=== PATIENT | male | born 1980 | race Caucasian/White ===

== ENCOUNTER 2021-04-26 17:49 | Day surgery (SDC) | payer BC ==
[~2021-04-26] VITALS: Ht 172.7 cm; Wt 70.5 kg
[2021-04-26] MEDS ORDERED: BACTDSTA (18:02)
[2021-04-26] MEDS ORDERED: LIDOCAINE 2% 5ML JELLY UROJET TOP ONE (19:25)
[2021-04-26] MEDS ORDERED: BACT800T5 PO (21:19)
[2021-04-26] MEDS ORDERED: KETO2SHA8 TOP (21:19)
[2021-04-26] MEDS ORDERED: HOME MED LIST COMPLETE! XX SCH (21:25)
[2021-04-26] MEDS ORDERED: MIDAZOLAM INJ 2MG/2ML VIAL (J2250 PER 1MG) As Ordered ONE (21:44)
[2021-04-26] MEDS ORDERED: propofoL 200 MG/20 ML VIAL As Ordered ONE (21:45)
[2021-04-26] MEDS ORDERED: fentaNYL 100 MCG/2 ML INJECTION (J3010) As Ordered ONE (21:45)
[2021-04-26] MEDS ORDERED: LIDOCAINE 2% 100MG/5ML SDV (FOR ANES.) As Ordered ONE (21:45)
[2021-04-26 22:06] LABS: RSV AMPLIFICATION NEGATIVE (NEGATIVE)
--- NOTE | 2021-04-26 22:14 | SMCUROLCON ---
Urology Consultation General Date of Consultation 04/26/21 Reason For Consultation This patient is seen for urethral stone and retention. History of Present Illness 41yo fellow. Urethral stone causing retention. ER unable to place catheter. Surgery arranged to remove stone. Past Medical History Medical History h/o stones Family History Significant Family History: No pertinent family hx Social History * Smoker: non-smoker Allergies Allergies: Coded Allergies: No Known Allergies (Unverified , 04/27/21) Review of Systems General: Denies: Chills Constitutional: Denies: Fever Eyes: Denies: Pain ENT: Denies: Ear Pain Skin: Denies: Rash Pulmonary: Denies: Dyspnea Cardiovascular: Denies Chest Pain Gastrointestinal: Denies: Nausea Genitourinary: Reports: Retention Hematologic: Denies: Bruising Endocrine: Denies: Polydipsia Musculoskeletal: Denies: Neck Pain Neurological: Denies: Weakness Psych: Reports: Mood Normal Physical Examination General Exam: Alert EYE EXAM: Conjunctiva & lids normal ENT EXAM: Mucous membr. moist/pink Neck Exam: Supple Chest Exam: Clear to auscultation Heart Exam: Rate Normal Abdomen Exam: Soft Male Exam stone can be felt in urethra Extremity Exam: No: Cyanosis Skin Exam: Nl turgor and temperature Neuro Exam: Normal Gait Psych Exam: Mental status NL Assessment Urethral stone that won't pass is causing urinary retention. ER unable to place catheter. Surgery to remove stone. Time Spent on Consult: Time Spent / Consult (Minutes): 30 VANESSA ALCANTAR MD Apr 26, 2021 22:14
[2021-04-26] MEDS ORDERED: KETAMINE HCL 200 MG/20 ML VIAL As Ordered ONE (22:55)
[2021-04-26] MEDS ORDERED: PYRI1TAB5 PO (23:11)
[2021-04-26] MEDS ORDERED: fentaNYL 100 MCG/2 ML INJECTION (J3010) IV PRN (23:25)
[2021-04-26] MEDS ORDERED: ONDANSETRON 4MG/2ML VIAL IV PRN (23:25)
[2021-04-26] MEDS ORDERED: LR 1,000 ML IV SCH (23:25)
[2021-04-26] MEDS ORDERED: oxyCODONE 5MG TAB PO PRN (23:25)
[2021-04-26 23:35] VITALS: BP 147/81
--- NOTE | 2021-04-27 07:45 | ROOPDOC ---
[facility] Report Of Operation Report of Operation DATE OF PROCEDURE: 04/27/21 PREPROCEDURE DIAGNOSES: [urethral stone and retention]. POSTPROCEDURE DIAGNOSES: [same]. PROCEDURE PERFORMED: [cystoscopy with urethral stone extraction]. SURGEON: [Guicho Alcantar], PARTNER CCO: [none], ANESTHESIA: [mac]. ESTIMATED BLOOD LOSS: Approximately [0] mL. COMPLICATIONS: [none]. REMARKS: [41yo wm. Urinary retention secondary to urethral stone. Catheter placement unsuccessful. Surgery arranged to extract stone. Risks discussed including infection, pain, bleeding, scarring, failure of surgery, injury to gu tract and others]. FINDINGS: SPECIMENS REMOVED: [urethral stone] PROCEDURE NOTE: . DESCRIPTION OF PROCEDURE: [Met with pt before surgery and surgery discussed. Informed consent obtained. Pt brought to OR room. Dorsal litho position. Well padded. Mac anesthesia started. Prep'd and draped in sterile fashion. Time out performed. Couldn't pass 17fr sheath with its obturator through ext meatus. Dilated with sounds to 24fr. Then able to pass 21fr sheath through meatus with its obturator. Rigid cystoscope assembled. Stone encountered in urethra. Stone pushed into bladder and then basketed with stone basket. Stone and scope then withdrawn. No difficulty in pulling stone through urethra and meatus. Stone handed off. Pt left room in satisfactory condition. Home with Bactrim and Pyridium. Still needs ct to determine kidney stone burden. Urethral stone was likely a kidney stone to begin with. Spoke with pt's significant other after surgery.]. VANESSA ALCANTAR MD Apr 27, 2021 07:45
[2021-05-05 15:08] LABS: Ca Ox Monohydrate 80 % (.); Size 7x11 mm (.)
== END 2021-04-26 23:30 | disposition home or self-care (01) ==
LOC: M ED 17:49 → M SDC 17:50 → M ED 22:35 → M SDC 23:30
PROVIDERS: ATTEND Urology
DX: N21.0 Calculus in bladder (principal); R33.9 Retention of urine, unspecified; F17.220 Nicotine dependence, chewing tobacco, uncomplicated
CPT/HCPCS: 51702; 52310; 82365; 87631; 88300; 99285; J2250; J3010

== ENCOUNTER → 2021-04-28 | Outpatient (CLI) | payer BC ==
[~2021-04-28] MED LIST: BACT800T5 PO; BACTDSTA; KETO2SHA8 TOP; PYRI1TAB5 PO
--- NOTE | 2021-04-28 11:37 | REP ---
INDICATION: HX KIDNEY STONES. COMPARISON: None. TECHNIQUE: Imaging protocol: Computed tomography of the abdomen and pelvis without IV contrast. Contiguous 3 mm thick axial projection images were obtained through the abdomen and pelvis. 2D sagittal and coronal reconstructions were performed. Radiation optimization: All CT scans at this facility use at least one of these dose optimization techniques: automated exposure control; mA and/or kV adjustment per patient size (includes targeted exams where dose is matched to clinical indication); or iterative reconstruction. FINDINGS: Heart and lung bases: The lung bases are clear. There are no pleural effusions. The heart size is normal. There is no pericardial effusion. Liver: Normal unenhanced appearance. Gallbladder: Normal. Spleen: Normal unenhanced appearance. Pancreas: Normal unenhanced appearance. Adrenal glands: Normal unenhanced appearance. Kidneys/bladder: There is a 6 mm in diameter stone in upper pole calyx of the right kidney. There is a 3 mm in diameter stone in the lower pole calyx of the left kidney. There is a 4 mm in diameter stone in the lower pole calyx of the left kidney. Pelvic structures: The prostate gland measures 3.7 cm in transverse dimension and contains coarse calcifications. There are bilateral seminal vesicle cysts. There is no free fluid in the pelvis. There is no pelvic or inguinal lymphadenopathy. GI tract: There are surgical clips in the epigastrium consistent with anti reflux surgery. There is a normal appendix demonstrated. The gastrointestinal tract is otherwise unremarkable. Abdominal wall and mesentery: There is a 12 mm in diameter umbilical hernia containing normal fat. There is no mesenteric or retroperitoneal lymphadenopathy 3 Abdominal aorta and vascular structures: The abdominal aorta has a normal unenhanced appearance. Bony structures: There is minimal dextroscoliosis of the thoracolumbar spine. The SI joints and hips are normal. IMPRESSION: 1. Bilateral nephrolithiasis without obstruction. 2. Status post anti reflux surgery. 3. Umbilical hernia containing normal fat. 4. Minimal dextroscoliosis of the thoracolumbar spine. <Electronically signed by Min Knowles > 04/28/21 [id number]
== END ==
LOC: M PLAIMG 09:56
PROVIDERS: ATTEND Urology
DX: N20.0 Calculus of kidney (principal); K42.9 Umbilical hernia without obstruction or gangrene; M41.86 Other forms of scoliosis, lumbar region; Z87.19 Personal history of other diseases of the digestive system

== ENCOUNTER → 2021-06-20 | Outpatient (REF) | payer BC ==
[2021-06-20 13:54] LABS: APPEARANCE, URINE CLEAR (CLEAR); BACTERIA, URINE AUTO NEGATIVE (NEGATIVE); BILIRUBIN, URINE AUTO NEGATIVE (NEGATIVE); BLOOD, URINE BLOOD 1+ (NEGATIVE); COLOR, URINE YELLOW (YELLOW); GLUCOSE, URINE (UA) AUTO NEGATIVE (NEGATIVE); KETONE, URINE AUTO NEGATIVE (NEGATIVE); LEUKOCYTE ESTERASE, URINE AUTO NEGATIVE (NEGATIVE); MUCUS, URINE SMALL (NEGATIVE); NITRITE, URINE AUTO NEGATIVE (NEGATIVE); PROTEIN, URINE AUTO NEGATIVE (NEGATIVE); RBC, URINE AUTO 1 /HPF (0-3); SPECIFIC GRAVITY URINE AUTO 1.021 (1.002-1.035); SQUAMOUS EPITHELIAL CELL UR AU 0 /HPF (0-6); UROBILINOGEN, URINE AUTO 0.2 mg/dL (0.0-2.0); WBC, URINE AUTO 0 /HPF (0-3)
== END ==
LOC: M SMT 12:51
PROVIDERS: ATTEND Urology
DX: R39.9 Unspecified symptoms and signs involving the genitourinary system (principal)

== ENCOUNTER → 2021-06-20 | Outpatient (CLI) | payer BC ==
[2021-06-20 13:20] LABS: HEMATOCRIT 48.9 % (42.0-52.0); HEMOGLOBIN 16.4 g/dl (13.5-17.5); MEAN CORPUSCULAR HEMOGLOBIN 28.6 pg (27.0-33.0); MEAN CORPUSCULAR HGB CONC 33.5 g/dl (32.0-36.5); MEAN CORPUSCULAR VOLUME 85.3 fl (80.0-96.0); PLATELET COUNT, AUTOMATED 237 10^3/uL (150-450); RED BLOOD COUNT 5.73 10^6/uL (4.30-6.10); WHITE BLOOD COUNT 7.8 10^3/uL (4.0-10.0)
--- NOTE | 2021-06-20 13:33 | REP ---
INDICATION: CALCULUS OF KIDNEY COMPARISON: None. TECHNIQUE: Supine view of the abdomen and pelvis. FINDINGS: Bowel gas pattern suggests moderate fecal stasis and possible constipation which significantly limits evaluation of the underlying urinary tract system. Intrarenal calculi cannot be excluded. Calcifications in the left hemipelvis likely consistent with phleboliths as confirmed by recent CT. IMPRESSION: Limited by bowel pattern. Urinary tract calcifications cannot be excluded. <Electronically signed by Renard Ordonez > 06/20/21 [id number]
[2021-06-20 13:54] LABS: BLOOD UREA NITROGEN 19 MG/DL (7-18); CALCIUM LEVEL 8.8 MG/DL (8.5-10.1); CARBON DIOXIDE LEVEL 29 MEQ/L (21-32); CHLORIDE LEVEL 107 MEQ/L (98-107); GLOMERULAR FILTRATION RATE > 60.0 (>60); GLUCOSE, FASTING 117 MG/DL (70-100); POTASSIUM SERUM 4.3 MEQ/L (3.5-5.1); SODIUM LEVEL 140 MEQ/L (136-145)
== END ==
LOC: M PLALAB 10:55 → M PLAIMG 10:55
PROVIDERS: ATTEND Urology
DX: N20.0 Calculus of kidney (principal)

== ENCOUNTER → 2021-06-21 | Outpatient (CLI) | payer BC | LOC: M LABSMTC 11:11 | PROVIDERS: ATTEND Anesthesiology | DX: Z01.812 Encounter for preprocedural laboratory examination (principal); Z20.822 Contact with and (suspected) exposure to COVID-19 ==

== ENCOUNTER 2021-06-23 13:54 | Day surgery (SDC) | payer BC ==
[~2021-06-23] VITALS: Ht 172.7 cm; Wt 69.5 kg
[~2021-06-23 13:54] MED LIST changes: +LR 1,000 ML IV ONE; +ceFAZolin SOD 2 GM in IV 1 EA IV ONE
[2021-06-23] MEDS ORDERED: MIDAZOLAM INJ 2MG/2ML VIAL (J2250 PER 1MG) As Ordered ONE (16:00)
[2021-06-23] MEDS ORDERED: fentaNYL 250 MCG/5 ML INJECTION (J3010) As Ordered ONE (16:00)
[2021-06-23] MEDS ORDERED: LIDOCAINE 2% 100MG/5ML SDV (FOR ANES.) As Ordered ONE (16:32)
[2021-06-23] MEDS ORDERED: propofoL 200 MG/20 ML VIAL As Ordered ONE (16:32)
[2021-06-23] MEDS ORDERED: dexameTHASONE 4 MG/ML 1ML VIAL (J1100 PER 1MG) As Ordered ONE (16:32)
[2021-06-23] MEDS ORDERED: ONDANSETRON 4MG/2ML VIAL As Ordered ONE (16:32)
[2021-06-23] MEDS ORDERED: CONRAY-60 60% 50ML VIAL (Q9961) As Ordered ONE (16:36)
[2021-06-23] MEDS ORDERED: KETO10TAB PO (17:04)
[2021-06-23] MEDS ORDERED: ACETAMINOPHEN 1000MG 100ML IV BTL (OFIRMEV) (J0131 PER 10MG) As Ordered ONE (17:05)
--- NOTE | 2021-06-23 17:45 | REP ---
INDICATION: RIGHT STENT PLACEMENT. COMPARISON: None. TECHNIQUE: Two views. 9 seconds of fluoroscopy time is reported. FINDINGS: A sequence of 2 last image hold fluoroscopically obtained spot radiographs of the abdomen document right ureteral cannulation, contrast injection, and stent placement. IMPRESSION: Procedural imaging. <Electronically signed by Micah Majano > 06/23/21 [id number]
[2021-06-23] MEDS ORDERED: OXYB5TAB10 PO (17:54)
[2021-06-23] MEDS ORDERED: oxyCODONE 5MG TAB PO PRN (18:00)
[2021-06-23] MEDS ORDERED: oxyBUTYnin 5 MG TAB PO PRN (18:00)
[2021-06-23] MEDS ORDERED: ONDANSETRON 4MG/2ML VIAL IV PRN (18:00)
[2021-06-23] MEDS ORDERED: LR 1,000 ML IV SCH (18:00)
[2021-06-23] MEDS ORDERED: PERCOCET 5MG/325MG TAB PO PRN (18:00)
[2021-06-23] MEDS ORDERED: fentaNYL 100 MCG/2 ML INJECTION (J3010) IV PRN (18:00)
[2021-06-23] MEDS ORDERED: HYDROMORPHONE HCL 0.5 MG/ 0.5 ML SYRINGE (J1170 PER 1) IV PRN (18:00)
[2021-06-23 19:10] VITALS: BP 141/73
--- NOTE | 2021-06-24 08:03 | RO ---
OPERATIVE NOTE DATE OF OPERATION: 06/23/2021 PREOPERATIVE DIAGNOSES: Right kidney stone, lower urinary tract symptoms. POSTOPERATIVE DIAGNOSIS: Right kidney stone, lower urinary tract symptoms, urethral meatal stenosis. PROCEDURE: Cystoscopy, right ureteroscopy with basket extraction of stone, right retrograde pyelogram with intraop interpreted images, right ureteral stent placement, urethral meatal dilation. SURGEON: Jef Duran MD VENEER CLIPPER HELPER: None ANESTHESIA: General. OPERATIVE INDICATIONS: This is a 41-year-old male who has been having bothersome obstructive lower urinary tract symptoms recently. He also had an approximately 5-6 mm right-sided kidney stone. He came to investigate his urinary symptoms as well as have the stone removed. DESCRIPTION OF PROCEDURE: The patient was brought to the operating room and general anesthesia was induced. Prophylactic antibiotics were infused. The patient was then placed in the dorsal lithotomy position and prepped and draped in the usual sterile fashion. At this point, I attempted to insert a rigid cystoscope into the urethra but it would not go because of meatal stenosis. I therefore dilated his urethral meatus to 26 Burkinan using curved metal sounds. Of note, I had to start dilating with an 8 Burkinan sound as the meatus was very stenotic. After this was done, I was able to insert a cystocope into the bladder. There were no other urethral abnormalities. A guidewire was advanced into the right collecting system. I then advanced a ureteral access sheath up the right collecting system. I went up the right collecting system with a flexible ureteroscope and examined the right kidney. Within an upper pole calyx, an approximately 5-6 mm stone was seen. The stone was grasped with a basket and withdrawn completely. No additional stones were seen. A retrograde pyelogram was performed and notable for mild right hydronephrosis with no extravasation. I then withdrew the ureteroscope along with the access sheath and no additional stones were seen. I then utilized the guidewire to advance the 6 Burkinan x 22-32 cm JJ ureteral stent up the right collecting system. The guidewire was then removed and there were adequate curls of the stent in the right renal pelvis and in the bladder. Because of the meatal dilation, I therefore decided to leave a catheter. At this point, a 16 Burkinan Doran catheter was inserted into the bladder. The balloon was filled with 10 mL of sterile water and then the catheter was connected to gravity drainage. This marked the conclusion of the procedure. The patient was taken out of dorsal lithotomy position, awakened from anesthesia and transported to the recovery room in stable condition. ESTIMATED BLOOD LOSS: 5 mL COMPLICATIONS: None. SPECIMENS: Kidney stone. PLAN: The patient will follow up in urology clinic next week for catheter removal and a voiding trial. We will take the stent out in the office in a few weeks. KAREN
== END 2021-06-23 19:15 | disposition home or self-care (01) ==
LOC: M SDC 13:54
PROVIDERS: ATTEND Urology
DX: N20.0 Calculus of kidney (principal); N00-N99 Diseases of the genitourinary system; F17.220 Nicotine dependence, chewing tobacco, uncomplicated
CPT/HCPCS: 52332; 52352; 74420; 82365; 88300; C1769; C1894; C2617; J0131; J0690; J1100; J2250; J2405; J3010; Q9961

== ENCOUNTER → 2021-09-13 | Outpatient (CLI) | payer BC ==
[~2021-09-13] MED LIST changes: +KETO10TAB PO; -LR 1,000 ML IV ONE; +OXYB5TAB10 PO; -ceFAZolin SOD 2 GM in IV 1 EA IV ONE
== END ==
LOC: M ADAMS 15:03
PROVIDERS: ATTEND Physician Assistant
DX: M54.41 Lumbago with sciatica, right side (principal)

== ENCOUNTER → 2021-09-13 | Outpatient (REF) | payer BC | LOC: M SFHCADAM 14:59 | PROVIDERS: ATTEND Physician Assistant | DX: M54.41 Lumbago with sciatica, right side (principal) ==

== ENCOUNTER → 2023-07-22 | Outpatient (REF) | payer BC ==
[~2023-07-22] MED LIST changes: -OXYB5TAB10 PO; +OXYB5TAB11 PO
[2023-07-22 13:49] LABS: ALBUMIN 3.8 G/DL (3.2-5.2); ALKALINE PHOSPHATASE 111 U/L (46-116); ALT/SGPT 33 U/L (7.0-40); AST/SGOT 23 U/L (<34); BASO # 0.1 10^3/uL (0.0-0.2); BASO % 0.9 % (0.0-1.0); BILIRUBIN,TOTAL 0.3 MG/DL (0.3-1.2); BLOOD UREA NITROGEN 13 MG/DL (9-23); CALCIUM LEVEL 9.2 MG/DL (8.5-10.1); CARBON DIOXIDE LEVEL 29 MMOL/L (20-31); CHLORIDE LEVEL 105 MMOL/L (98-107); CHOLESTEROL LEVEL 205 MG/DL (<200); CREATININE FOR GFR 0.93 MG/DL (0.70-1.30); EOS # 0.5 10^3/uL (0.0-0.5); EOS % 5.5 % (0.0-3.0); GLOMERULAR FILTRATION RATE > 60.0 (>60); GLUCOSE, FASTING 106 MG/DL (60-100); HEMATOCRIT 50.7 % (42.0-52.0); HEMOGLOBIN 17.1 g/dl (13.5-17.5); LDL CHOLESTEROL 128.4 MG/DL (<100); LYMPH # 3.3 10^3/uL (1.5-5.0); LYMPH % 33.9 % (24.0-44.0); MEAN CORPUSCULAR HEMOGLOBIN 29.2 pg (27.0-33.0); MEAN CORPUSCULAR HGB CONC 33.7 g/dl (32.0-36.5); MEAN CORPUSCULAR VOLUME 86.7 fl (80.0-96.0); MONO # 0.9 10^3/uL (0.0-0.8); MONO % 8.8 % (2.0-8.0); NEUTROPHILS # 4.9 10^3/uL (1.5-8.5); NEUTROPHILS % 50.3 % (36.0-66.0); PLATELET COUNT, AUTOMATED 297 10^3/uL (150-450); POTASSIUM SERUM 4.4 MMOL/L (3.5-5.1); RED BLOOD COUNT 5.85 10^6/uL (4.30-6.10); SODIUM LEVEL 141 MMOL/L (136-145); THYROID STIMULATING HORMONE 1.563 uIU/ML (0.55-4.78); TOTAL PROTEIN 6.7 G/DL (5.7-8.2); TRIGLYCERIDES LEVEL 178 MG/DL (<150); WHITE BLOOD COUNT 9.8 10^3/uL (4.0-10.0)
== END ==
LOC: M SFHCADAM 08:42
PROVIDERS: ATTEND Physician Assistant Medical
DX: Z00.00 Encounter for general adult medical examination without abnormal findings (principal); E78.2 Mixed hyperlipidemia

== ENCOUNTER → 2023-11-20 | Outpatient (REF) | payer BC ==
[~2023-11-20] MED LIST changes: -OXYB5TAB11 PO; +OXYB5TAB14 PO
== END ==
LOC: M SFHCADAM 10:50
PROVIDERS: ATTEND Physician Assistant Medical
DX: R21 Rash and other nonspecific skin eruption (principal)

== ENCOUNTER → 2024-08-03 | Outpatient (REF) | payer BC ==
[2024-08-03 19:07] LABS: BASO # 0.1 10^3/uL (0.0-0.2); BASO % 0.5 % (0.0-1.0); EOS # 0.2 10^3/uL (0.0-0.5); EOS % 1.2 % (0.0-3.0); HEMATOCRIT 53.2 % (42.0-52.0); HEMOGLOBIN 17.6 g/dl (13.5-17.5); LYMPH # 2.6 10^3/uL (1.5-5.0); LYMPH % 19.2 % (24.0-44.0); MEAN CORPUSCULAR HEMOGLOBIN 29.3 pg (27.0-33.0); MEAN CORPUSCULAR HGB CONC 33.1 g/dl (32.0-36.5); MEAN CORPUSCULAR VOLUME 88.5 fl (80.0-96.0); MONO # 1.1 10^3/uL (0.0-0.8); MONO % 7.9 % (2.0-8.0); NEUTROPHILS # 9.5 10^3/uL (1.5-8.5); NEUTROPHILS % 70.8 % (36.0-66.0); PLATELET COUNT, AUTOMATED 282 10^3/uL (150-450); RED BLOOD COUNT 6.01 10^6/uL (4.30-6.10); WHITE BLOOD COUNT 13.4 10^3/uL (4.0-10.0)
[2024-08-03 19:34] LABS: ALBUMIN 4.2 G/DL (3.2-5.2); ALKALINE PHOSPHATASE 129 U/L (40-129); ALT/SGPT 23 U/L (7.0-40); AST/SGOT 12 U/L (<34); BILIRUBIN,TOTAL 0.9 MG/DL (0.3-1.2); BLOOD UREA NITROGEN 17 MG/DL (9-23); CALCIUM LEVEL 9.9 MG/DL (8.5-10.1); CARBON DIOXIDE LEVEL 29 MMOL/L (20-31); CHLORIDE LEVEL 106 MMOL/L (98-107); CHOLESTEROL LEVEL 201 MG/DL (<200); CREATININE FOR GFR 0.92 MG/DL (0.70-1.30); GLOMERULAR FILTRATION RATE > 60.0 (>60); GLUCOSE, FASTING 83 MG/DL (60-100); HDL CHOLESTEROL 51.5 MG/DL (>40); LDL CHOLESTEROL 136.5 MG/DL (<100); NON-HDL-C 149.5 MG/DL; POTASSIUM SERUM 4.3 MMOL/L (3.5-5.1); SODIUM LEVEL 142 MMOL/L (136-145); TOTAL PROTEIN 7.4 G/DL (5.7-8.2); TRIGLYCERIDES LEVEL 65 MG/DL (<150)
== END ==
LOC: M SFHCADAM 12:18
PROVIDERS: ATTEND Physician Assistant Medical
DX: Z00.00 Encounter for general adult medical examination without abnormal findings (principal); Z23 Encounter for immunization

== ENCOUNTER → 2025-08-04 | Outpatient (REF) | payer BC ==
[~2025-08-04] MED LIST changes: +KETO120S5 TOP; -KETO2SHA8 TOP
[2025-08-04 14:12] LABS: BASO # 0.1 10^3/uL (0.0-0.2); BASO % 1.1 % (0.0-1.0); EOS # 0.4 10^3/uL (0.0-0.5); EOS % 4.8 % (0.0-3.0); LYMPH # 3.0 10^3/uL (1.5-5.0); LYMPH % 32.4 % (24.0-44.0); MONO # 0.8 10^3/uL (0.0-0.8); MONO % 8.3 % (2.0-8.0); NEUTROPHILS # 4.9 10^3/uL (1.5-8.5); NEUTROPHILS % 53.2 % (36.0-66.0); PLATELET COUNT, AUTOMATED 266 10^3/uL (150-450)
[2025-08-04 14:16] LABS: ALT/SGPT 27 U/L (7.0-40); AST/SGOT 21 U/L (<34); CALCIUM LEVEL 8.7 MG/DL (8.5-10.1); CARBON DIOXIDE LEVEL 30 MMOL/L (20-31); CHLORIDE LEVEL 103 MMOL/L (98-107); CHOLESTEROL LEVEL 188 MG/DL (<200); CHOLESTEROL RISK RATIO 3.69 (<5); CREATININE FOR GFR 0.92 MG/DL (0.70-1.30); FREE T4 1.11 NG/DL (0.89-1.76); GLOMERULAR FILTRATION RATE > 90.0 (>60); IRON (FE) 102 UG/DL (65-175); LDL CHOLESTEROL 121.5 MG/DL (<100); NON-HDL-C 137.1 MG/DL; PERCENT SATURATION 33.8 % (19.7-50.0); POTASSIUM SERUM 4.0 MMOL/L (3.5-5.1); SODIUM LEVEL 141 MMOL/L (136-145); TRIGLYCERIDES LEVEL 78 MG/DL (<150)
[2025-08-04 14:18] LABS: TOTAL 25(OH) VITAMIN D 29.2 NG/ML (20.0-100.0)
== END ==
LOC: M SFHCADAM 09:54
PROVIDERS: ATTEND Physician Assistant Medical
DX: Z00.00 Encounter for general adult medical examination without abnormal findings (principal); L71.9 Rosacea, unspecified; E78.2 Mixed hyperlipidemia; Z13.0 Encounter for screening for diseases of the blood and blood-forming organs and certain disorders involving the immune mechanism; Z83.49 Family history of other endocrine, nutritional and metabolic diseases